=== PATIENT | male | born 2000 | race American Indian/Alaskan Native ===

== ENCOUNTER 2024-02-07 13:48 | Emergency (ER) | payer OTHER ==
[~2024-02-07] VITALS: Ht 180.3 cm; Wt 89.5 kg
[2024-02-07 14:43] VITALS: BP 143/91; PULSE 126; RESP 18; TEMP 98.7; O2SAT 99
[2024-02-07] MEDS: AMPICILLIN & SULBACTAM SODIUM 3 GM in SODIUM CHL 0.9% 100 ML IV ONE (15:15)
[2024-02-07] MEDS: TETANUS-DIPTH-ACEL PERTUSSIS 0.5ML SYR Tdap IM ONE (15:42)
[2024-02-07] MEDS: KETOROLAC TROMETH 30 MG/ML 1ML VIAL IM ONE (15:42)
[2024-02-07 16:41] LABS: Basophils # (auto) 0 10 ^3/uL (0-0.2); Basophils % (auto) 0.4 % (0.0-2.0); Eosinophils # (auto) 0 10 ^3/uL (0-0.8); Eosinophils % (auto) 0.2 % (0.0-7.0); Hematocrit 42.7 % (41.0-53.0); Hemoglobin 14.1 g/dL (13.5-17.5); Lymphocytes # (auto) 1.3 10 ^3/uL (0.4-5.4); Lymphocytes % (auto) 12.2 % (10.0-50.0); Mean Corpuscular Hemoglobin 28.4 pg (28.0-32.0); Mean Corpuscular Hgb Conc. 33.1 g/dL (32.0-36.0); Mean Corpuscular Volume 85.8 fL (80.0-100.0); Monocytes # (auto) 0.5 10 ^3/uL (0-1.3); Monocytes % (auto) 5.1 % (0.0-12.0); Neutrophils # (auto) 8.6 10 ^3/uL (1.6-8.6); Neutrophils % (auto) 82.1 % (37.0-80.0); Red Blood Cells 4.97 10^6/uL (4.5-5.90); Red Cell Distribution Width 12.4 % (11.8-14.3); White Blood Cell 10.4 10^3/uL (4.4-10.8)
[2024-02-07 16:52] LABS: Calcium 9.8 mg/dL (8.5-10.1); Chloride 107 mmol/L (98-107); Potassium 4.2 mmol/L (3.5-5.1); Sodium 138 mmol/L (136-145)
[2024-02-07 16:53] LABS: Anion Gap 3 (5-15); Carbon Dioxide 28 mmol/L (20-30)
[2024-02-07 16:58] LABS: BUN/Creatinine Ratio 5.6 (10.0-20.0); Blood Urea Nitrogen 6 mg/dL (9-23); Glucose 97 mg/dL (74-106)
[2024-02-07] MEDS ORDERED: AUG875T PO (17:35)
[2024-02-07] MEDS ORDERED: IBUP1TAB5 PO (17:36)
[2024-02-07] MEDS: ONDANSETRON ODT 4 MG TAB PO ONE (17:36)
== END 2024-02-07 17:56 | disposition home or self-care (01) ==
LOC: ER 13:48
DX: S61.431A Puncture wound without foreign body of right hand, initial encounter (principal); Z79.1 Long term (current) use of non-steroidal anti-inflammatories (NSAID); Z79.2 Long term (current) use of antibiotics; W54.0XXA Bitten by dog, initial encounter; Y93.89 Activity, other specified; Y92.89 Other specified places as the place of occurrence of the external cause; Y99.8 Other external cause status
CPT/HCPCS: 36415; 80048; 85025; 90471; 90715; 96372; 99284; J1885; Q0162